=== PATIENT | female | born 1960 | race American Indian/Alaskan Native ===

== ENCOUNTER 2020-08-06 12:15 | Emergency (ER) | payer MEDICAID ==
--- NOTE | 2020-08-06 12:47 | Event Note ---
ED Screening Note Date of service: 08/06/20 Time: 12:46 ED Screening Note: 60-year-old female patient with history of diabetes, hypothyroidism, seizure disorder, hypertension, and schizophrenia presents to the emergency department with complaints of dizziness for approximately 1 week, worsening this morning. No preceding fall, trauma, or injury. Patient takes both Dilantin and Keppra for her seizures. States she has been compliant with her medication regimen. General: Awake, appropriately interactive, no acute distress. Neck: Supple. Full range of motion intact. Cardiovascular: Normal peripheral perfusion. Pulmonary: No respiratory distress. Patient is speaking normally without use of accessory muscles. Skin: No apparent rashes or lesions. Neurological: No facial asymmetry. Speech is clear. Follows commands. Patient is alert and oriented. Musculoskeletal: Moves all four extremities spontaneously with normal range of motion. Psych: Cooperative. Appropriate mood and affect. Initial labs ordered; decision to pursue further diagnostic work-up (i.e. imaging) deferred to additional ED providers. I have greeted and performed a focused rapid initial assessment of this patient. A comprehensive ED assessment and evaluation of the patient, analysis of all test results, and completion of the medical decision-making process will be conducted by additional ED providers. This initial assessment/diagnostic orders/clinical plan/treatment(s) is/are subject to change based on patients health status, clinical progression and re-assessment. Further treatment and workup at subsequent clinical provider's discretion. Patient/guardian urged not to elope from the ED as their condition may be serious if not clinically assessed and managed.
--- NOTE | 2020-08-06 13:39 | XRay Report ---
CHEST 2 VIEWS INDICATION / CLINICAL INFORMATION: dizziness. COMPARISON: None available. FINDINGS: SUPPORT DEVICES: None. HEART / MEDIASTINUM: No significant abnormality. LUNGS / PLEURA: No significant pulmonary or pleural abnormality. No pneumothorax. ADDITIONAL FINDINGS: No significant additional findings. IMPRESSION: 1. No acute findings. Signer Name: Lyle Ruth MD Signed: 08/06/2020 1:35 PM Workstation Name: [id number]
[2020-08-06 13:52] LABS: Basophils % (Auto) 0.4 % (0.0-1.8); Hemoglobin 12.4 gm/dl (10.1-14.3); Mean Corpuscular HGB Conc 33 % (30-34); Mean Corpuscular Volume 80 fl (79-97); Monocytes # (Auto) 0.3 K/mm3 (0.0-0.8); Monocytes % (Auto) 7.3 % (0.0-7.3); Platelet Count 215 K/mm3 (140-440); Red Blood Count 4.72 M/mm3 (3.65-5.03); Red Cell Distribution Width 15.1 % (13.2-15.2)
[2020-08-06 14:00] LABS: INR 0.94 (0.87-1.13)
[2020-08-06 14:01] LABS: Partial Thromboplastin Time 30.1 Sec. (24.2-36.6)
[2020-08-06 14:14] LABS: Alanine Aminotransferase 11 units/L (7-56); Albumin 4.1 g/dL (3.9-5); Blood Urea Nitrogen 8 mg/dL (7-17); Calcium 8.4 mg/dL (8.4-10.2); Hemolysis Index 0
[2020-08-06 14:16] LABS: BUN/Creatinine Ratio 11
[2020-08-06 15:40] LABS: Bilirubin,Urine NEG (Negative); Blood,Urine NEG (Negative); Color,Urine Yellow (Yellow); Mucus,Urine FEW /HPF; Protein,Urine <15 mg/dL mg/dL (Negative); Urobilinogen,Urine < 2.0 mg/dL (<2.0)
--- NOTE | 2020-08-06 16:01 | Emergency Department Report ---
ED General Adult HPI - General Chief complaint: Dizziness Stated complaint: DIZZY Time Seen by Provider: 08/06/20 15:30 Source: patient, family Mode of arrival: Wheelchair Limitations: No Limitations - History of Present Illness Initial comments: This is a 60-year-old female with a history of chronic schizophrenia, hypothyroidism and seizure disorder. She states that she has been dizzy for 3 to 4 weeks. She states that her symptoms have been worse for the past 3 to 4 days. She traveled here from [place]. In [place] she had an evaluation for the same symptoms to include a CT of her head which is reported by her to have an negative. Patient complains of weakness and dizziness on walking. She does not complain of vertigo or spinning per se. She states that she is "not coordinated". Review of the patient's medications indicates that she has a bottle of 290 Dilantin. I did a pill count and it is essentially correct at 3 pills a day, prescriptive date was 06/12/2020. Patient manages her own medications and is familiar with them. Her Dilantin was changed from plain Dilantin to Dilantin X. Dilantin extended release is really quite similar to regular which she was on to my knowledge in terms of the dose schedule. In any case, her symptoms are really quite chronic. Her Dilantin level was found to be 36+. She does not complain of headache, focal weakness or numbness. She said no difficulty with her speech. -: Gradual, week(s) Associated Symptoms: denies other symptoms Treatments Prior to Arrival: none - Related Data Allergies Allergy/AdvReac Type Severity Reaction Status Date / Time diphenhydramine Allergy Unknown Verified 08/06/20 12:44 [From Benadryl] latex Allergy Unknown Verified 08/06/20 12:44 morphine Allergy Unknown Verified 08/06/20 12:44 ED Review of Systems ROS: Stated complaint: DIZZY Other details as noted in HPI Constitutional: denies: chills, fever Eyes: denies: eye pain, eye discharge, vision change ENT: denies: ear pain, throat pain Respiratory: denies: cough, shortness of breath Cardiovascular: denies: chest pain, palpitations Endocrine: no symptoms reported Gastrointestinal: denies: abdominal pain, nausea, diarrhea Genitourinary: denies: urgency, dysuria, discharge Musculoskeletal: denies: back pain, joint swelling, arthralgia Skin: denies: rash, lesions Neurological: as per HPI, abnormal gait (Some difficulty with walking.). denie s: headache, weakness, numbness, paresthesias Psychiatric: denies: anxiety, depression Hematological/Lymphatic: denies: easy bleeding, easy bruising ED Past Medical Hx - Past Medical History Previous Medical History?: Yes Hx Diabetes: Yes Hx Seizures: Yes Hx Psychiatric Treatment: Yes (schizophrenia) Hx Asthma: Yes Additional medical history: hypothyroidism - Surgical History Past Surgical History?: Yes Hx Cholecystectomy: Yes Additional Surgical History: total hysterectomy,knee replacements, left shoulder - Social History Smoking Status: Never Smoker Substance Use Type: None ED Physical Exam - General Limitations: No Limitations, Physical Limitation General appearance: alert, in no apparent distress, obese - Head Head exam: Present: atraumatic, normocephalic - Eye Eye exam: Present: normal appearance, PERRL, EOMI. Absent: scleral icterus - ENT ENT exam: Present: mucous membranes moist - Neck Neck exam: Present: normal inspection - Respiratory Respiratory exam: Present: normal lung sounds bilaterally. Absent: respiratory distress - Cardiovascular Cardiovascular Exam: Present: regular rate, normal rhythm. Absent: systolic murmur, diastolic murmur, rubs, gallop - GI/Abdominal GI/Abdominal exam: Present: soft, normal bowel sounds. Absent: distended, tenderness, guarding, rebound - Extremities Exam Extremities exam: Present: normal inspection - Back Exam Back exam: Present: normal inspection - Neurological Exam Neurological exam: Present: alert, oriented X3, CN II-XII intact. Absent: motor sensory deficit - Psychiatric Psychiatric exam: Present: normal affect, normal mood - Skin Skin exam: Present: warm, dry, intact, normal color. Absent: rash - Other Other exam information: Patient was able to get up out of bed and support her own weight. She was on the monitor so I did not walk her very far. ED Course Vital Signs 08/06/20 08/06/20 08/06/20 12:52 15:28 15:30 Temperature 98.3 F Pulse Rate 85 78 Respiratory 18 16 Rate Blood Pressure Blood Pressure 112/49 [Right] O2 Sat by Pulse 98 99 100 Oximetry 08/06/20 08/06/20 08/06/20 15:45 16:00 16:16 Temperature Pulse Rate 86 73 74 Respiratory 28 H 17 18 Rate Blood Pressure 159/61 137/59 133/54 Blood Pressure [Right] O2 Sat by Pulse 98 98 98 Oximetry 08/06/20 16:30 Temperature Pulse Rate 80 Respiratory 19 Rate Blood Pressure 126/56 Blood Pressure [Right] O2 Sat by Pulse 98 Oximetry - Reevaluation(s) Reevaluation #1: Patient's dizziness is attributed to Dilantin toxicity. She is going to be taken off her Dilantin for 2 days. It will be reinitiated at 1 tablet twice a day instead of 3. A follow-up level is recommended. Fall precautions are discussed. Patient expressed understanding. 08/06/20 16:02 ED Medical Decision Making - Lab Data Result diagrams: 08/06/20 13:31 08/06/20 13:31 Laboratory Results - last 24 hr 08/06/20 08/06/20 08/06/20 13:31 13:31 13:31 WBC 4.5 RBC 4.72 Hgb 12.4 Hct 38.0 MCV 80 MCH 26 L MCHC 33 RDW 15.1 Plt Count 215 Lymph % (Auto) 22.0 [place] % (Auto) 7.3 Eos % (Auto) 0.0 Baso % (Auto) 0.4 Lymph # (Auto) 1.0 L [place] # (Auto) 0.3 Eos # (Auto) 0.0 Baso # (Auto) 0.0 Seg Neutrophils % 70.3 H Seg Neutrophils # 3.2 PT 12.5 INR 0.94 APTT 30.1 Sodium 140 Potassium 4.4 Chloride 103.7 Carbon Dioxide 28 Anion Gap 13 BUN 8 Creatinine 0.7 Estimated GFR > 60 BUN/Creatinine Ratio 11 Glucose 122 H Calcium 8.4 Magnesium 2.10 Total Bilirubin 0.30 AST 12 ALT 11 Alkaline Phosphatase 170 H Troponin T < 0.010 Total Protein 7.1 Albumin 4.1 Albumin/Globulin Ratio 1.4 TSH Urine Color Urine Turbidity Urine pH Ur Specific [place] Urine Protein Urine Glucose (UA) Urine Ketones Urine Blood Urine Nitrite Urine Bilirubin Urine Urobilinogen Ur Leukocyte Esterase Urine WBC (Auto) Urine RBC (Auto) U Epithel Cells (Auto) Urine Mucus Phenytoin 08/06/20 08/06/20 08/06/20 13:31 13:31 Unknown WBC RBC Hgb Hct MCV MCH MCHC RDW Plt Count Lymph % (Auto) [place] % (Auto) Eos % (Auto) Baso % (Auto) Lymph # (Auto) [place] # (Auto) Eos # (Auto) Baso # (Auto) Seg Neutrophils % Seg Neutrophils # PT INR APTT Sodium Potassium Chloride Carbon Dioxide Anion Gap BUN Creatinine Estimated GFR BUN/Creatinine Ratio Glucose Calcium Magnesium Total Bilirubin AST ALT Alkaline Phosphatase Troponin T Total Protein Albumin Albumin/Globulin Ratio TSH 0.883 Urine Color Yellow Urine Turbidity Clear Urine pH 5.0 Ur Specific [place] 1.017 Urine Protein <15 mg/dl Urine Glucose (UA) Neg Urine Ketones Neg Urine Blood Neg Urine Nitrite Neg Urine Bilirubin Neg Urine Urobilinogen < 2.0 Ur Leukocyte Esterase Neg Urine WBC (Auto) 1.0 Urine RBC (Auto) 3.0 U Epithel Cells (Auto) 4.0 Urine Mucus Few Phenytoin 36.6 H Critical care attestation.: If time is entered above; I have spent that time in minutes in the direct care of this critically ill patient, excluding procedure time. ED Disposition Clinical Impression: Dilantin toxicity Qualifiers: Encounter type: initial encounter Injury intent: accidental or unintentional Qualified Code(s): T42.0X1A - Poisoning by hydantoin derivatives, accidental (unintentional), initial encounter Disposition: - TO HOME OR SELFCARE Is pt being admited?: No Does the pt Need Aspirin: No Condition: Stable Instructions: Phenytoin Toxicity Additional Instructions: Stop your Dilantin for the next 2 days. You may restart it on Friday, decrease to 1 tablet twice a day. A follow-up Dilantin level is recommended. No unaccompanied walking. I would also recommend 1 baby aspirin a night cons idering her history of diabetes. Referrals: [facility] [Provider Group] - 2-3 Days PRIMARY CARE, [Primary Care Provider] - 3-5 Days Time of Disposition: 18:17
[2020-08-06 16:43] VITALS: BP 126/56
--- NOTE | 2020-08-07 21:43 | Electrocardiograph Report ---
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
== END 2020-08-06 16:44 | disposition home or self-care (01) ==
LOC: ED 12:15
DX: R42 Dizziness and giddiness (principal); T42.0X5A Adverse effect of hydantoin derivatives, initial encounter; E11.9 Type 2 diabetes mellitus without complications; Z86.69 Personal history of other diseases of the nervous system and sense organs; F20.9 Schizophrenia, unspecified; J45.909 Unspecified asthma, uncomplicated; E03.9 Hypothyroidism, unspecified; Z90.49 Acquired absence of other specified parts of digestive tract; Z90.710 Acquired absence of both cervix and uterus; Z88.5 Allergy status to narcotic agent; Z88.8 Allergy status to other drugs, medicaments and biological substances; Z91.040 Latex allergy status; Y92.89 Other specified places as the place of occurrence of the external cause
CPT/HCPCS: 36415; 71046; 80053; 80185; 81001; 83735; 84443; 84484; 85025; 85610; 85730; 93005; 99284